=== PATIENT | female | born 1985 | race Caucasian/White ===

== ENCOUNTER 2020-03-18 12:56 | Emergency (ER) | payer SELFPAY ==
[~2020-03-18] VITALS: Ht 157.5 cm; Wt 111.0 kg
[2020-03-18 13:09] VITALS: BP 118/78
[2020-03-18] MEDS ORDERED: HYDROcodone/APAP 5/325MG 1 TAB TABLET PO ONE (13:15)
--- NOTE | 2020-03-18 13:24 | PHYS DOC ---
General Adult EDM: Chief Complaint: MECHANICAL FALL HPI: HPI: Patient is a 34 year old female who presents with states she was on a step stool helping a friend paint in her new house when the step stool tipped over. She states that she hit her left knee and hurt her coccyx. Denies hitting head, loc, vomiting, vision changes, numbness or tingling, back pain, neck pain, focal weakness. Ambulatory with a steady gait and had no complications when sitting down in exam chair. I saw the patient walking without a limp but when I went to examine the knee she states she could not move it. Rates her pain a /. Review of Systems: Review of Systems: Musculoskeletal: Denies back pain or Left knee and coccyx joint pain. [] Heart Score: Risk Factors: Risk Factors: DM, Current or recent (<one month) smoker, HTN, HLP, family history of CAD, obesity. Risk Scores: Score 0 - 3: 2.5% MACE over next 6 weeks - Discharge Home Score 4 - 6: 20.3% MACE over next 6 weeks - Admit for Clinical Observation Score 7 - 10: 72.7% MACE over next 6 weeks - Early Invasive Strategies Allergies: Allergies: Allergies Coded Allergies Type Severity Reaction Last Updated Verified erythromycin base Allergy Unknown emesis 03/18/20 Yes ketorolac Allergy Unknown hives 03/18/20 Yes NSAIDS (Non-Steroidal Anti-Inflamma Adverse Reaction Unknown 03/18/20 Yes Physical Exam: PE: Constitutional: Well developed, well nourished, no acute distress, non-toxic appearance. [] HENT: Normocephalic, atraumatic, bilateral external ears normal, oropharynx moist, no oral exudates, nose normal. [] Eyes: PERRLA, EOMI, conjunctiva normal, no discharge. [] Neck: Normal range of motion, no tenderness, supple, no stridor. [] Cardiovascular:Heart rate regular rhythm, no murmur [] Lungs & Thorax: Bilateral breath sounds clear to auscultation [] Abdomen: Bowel sounds normal, soft, no tenderness, no masses, no pulsatile masses. [] Skin: Warm, dry, no erythema, no rash. [] Back: No tenderness, no CVA tenderness. [] Extremities: left knee tenderness, no cyanosis, no clubbing, limited ROM intact, no edema. Coccyx tenderness with palpation. [] Neurologic: Alert and oriented X 3, normal motor function, normal sensory function, no focal deficits noted. [] Psychologic: Affect normal, judgement normal, mood normal. [] EKG: EKG: [] Radiology/Procedures: Radiology/Procedures: [] Impression: [place] [address] IMAGING REPORT Signed PATIENT: HUMBERTO SABA ACCOUNT: [id number] : 1985 LOCATION: ER AGE: 34 SEX: F EXAM STATUS: REG ER ORD. PHYSICIAN: SPENCER NAVA APRN REASON: pain from fall PROCEDURE: KNEE LEFT 4V KNEE LEFT 4V History: Pain. Fall. Technique: 4 views left knee. Comparison: none Findings: Mild medial compartment degenerative changes. Normal limit. No fracture. Small knee joint effusion. Impression: 1. No acute osseous abnormality. 2. Small knee joint effusion. Electronically signed by: Jr Chinchilla DO (03/18/2020 2:00 PM) [id number] DICTATED and SIGNED BY: JR CHINCHILLA DO DATE: 03/18/[address] [place] [address] IMAGING REPORT Signed PATIENT: HUMBERTO SABA ACCOUNT: [id number] : 1985 LOCATION: ER AGE: 34 SEX: F EXAM STATUS: REG ER ORD. PHYSICIAN: SPENCER NAVA APRN REASON: pain from a fall, pt states fell this am, knee and tailbone pain. PROCEDURE: SACRUM & COCCYX 3V SACRUM COCCYX 3V History: Pain. Fall. Technique: 3 views of the sacrum and coccyx. Comparison: None. Findings: Normal alignment of the sacrum. Normal transit the sacroiliac joints. No fracture. Impression: 1. No acute osseous abnormality. Electronically signed by: Jr Chinchilla DO (03/18/2020 2:02 PM) [id number] DICTATED and SIGNED BY: JR CHINCHILLA DO DATE: 03/18/20 1402 Course & Med Decision Making: Course & Med Decision Making Pertinent Labs and Imaging studies reviewed. (See chart for details) Alert and oriented. Speaks in full clear sentences. Skin pink warm and dry. Patient states she just finished her menses period yesterday. Follows all commands appropriately. Answers questions appropriately. Walks without a limp. States that she has tenderness to the anterior posterior lateral and medial knee with palpation. No deformity or swelling is seen there is no bruising. Patient states she also has coccyx pain. There is tenderness with palpation to the coccyx no bruising was seen. Registration states that she gave 2 different names when asked and states she had no identification and does not work. She a lso states a address that does not match the ZIP Code to registration. [] Dragon Disclaimer: Dragon Disclaimer: This electronic medical record was generated, in whole or in part, using a voice recognition dictation system. Departure Departure Impression: Primary Impression: Fall Qualified Codes: W19.XXXA - Unspecified fall, initial encounter Additional Impressions: Knee pain Qualified Codes: M25.562 - Pain in left knee Coccyx contusion Qualified Codes: S30.0XXA - Contusion of lower back and pelvis, initial encounter Disposition: HOME, SELF-CARE Condition: STABLE Referrals: NO PCP (PCP) FLORIDALMA DHALIWAL II, MD Patient Instructions: Fall Prevention and Home Safety, [id number], Knee Effusion, Tailbone Injury, [id number] Additional Instructions: Follow up with orthopedics as soon as possible. There is always a risk that t here could be ligament injury that xrays can not see. Take Tylenol #3 for pain. Use ice to help with pain and inflammation. Scripts Acetaminophen With Codeine (TYLENOL WITH CODEINE #3 TABLET) 1 Each Tablet 1 TAB PO PRN Q4-6HRS PRN for pain MDD 6 Tablet(s), #12 TAB 0 Refills Prov: SPENCER NAVA APRN 03/18/20 SPENCER NAVA APRN March 18, 2020 13:24
[2020-03-18 13:36] LABS: BACTERIA,URINE 0 /HPF (0-FEW); BARBITURATES NEG (NEG); BENZODIAZEPINES NEG (NEG); BILIRUBIN,URINE NEGATIVE (NEG); CANNABINOIDS NEG (NEG); CLARITY,URINE CLEAR; COCAINE NEG (NEG); COLOR,URINE YELLOW; METHADONE NEG (NEG); NITRITE,URINE NEGATIVE (NEG); OPIATES NEG (NEG); PH,URINE 7.5 (<5.0-8.0); PHENCYCLIDINE NEG (NEG); PROTEIN,URINE NEGATIVE (NEG-TRACE); SQUAMOUS EPITHELIAL CELL,UR MANY /LPF; UROBILINOGEN,URINE 0.2 mg/dL (0.2 mg/dL); WBC,URINE OCC /HPF (0-4)
[2020-03-18 13:39] LABS: AMPHETAMINE/METHAMPHETAMINE NEG (NEG)
--- NOTE | 2020-03-18 14:03 | RAD ---
KNEE LEFT 4V History: Pain. Fall. Technique: 4 views left knee. Comparison: none Findings: Mild medial compartment degenerative changes. Normal limit. No fracture. Small knee joint effusion. Impression: 1. No acute osseous abnormality. 2. Small knee joint effusion. Electronically signed by: Jr Chinchilla DO (03/18/2020 2:00 PM) [id number]
--- NOTE | 2020-03-18 14:04 | RAD ---
SACRUM COCCYX 3V History: Pain. Fall. Technique: 3 views of the sacrum and coccyx. Comparison: None. Findings: Normal alignment of the sacrum. Normal transit the sacroiliac joints. No fracture. Impression: 1. No acute osseous abnormality. Electronically signed by: Jr Chinchilla DO (03/18/2020 2:02 PM) [id number]
[2020-03-18] MEDS ORDERED: ACET-704 PO (14:12)
== END 2020-03-18 13:09 | disposition home or self-care (01) ==
LOC: ER 12:56
DX: S30.0XXA Contusion of lower back and pelvis, initial encounter (principal); M25.562 Pain in left knee; Z88.1 Allergy status to other antibiotic agents; Z88.6 Allergy status to analgesic agent; Z88.8 Allergy status to other drugs, medicaments and biological substances; W07.XXXA Fall from chair, initial encounter; Y93.89 Activity, other specified; Y92.89 Other specified places as the place of occurrence of the external cause; Y99.8 Other external cause status
CPT/HCPCS: 29505; 72220; 73564; 80307; 81001; 81025; 99284